=== PATIENT | female | born 1940 | race Caucasian/White ===

== ENCOUNTER → 2016-07-21 | Outpatient (CLI) | payer MEDICARE, OTHER | END | disposition home or self-care (01) | LOC: GMAB 10:05 | PROVIDERS: ATTEND Family Medicine | DX: I50.22 Chronic systolic (congestive) heart failure (principal); I10 Essential (primary) hypertension ==

== ENCOUNTER → 2016-08-03 | Outpatient (CLI) | payer MEDICARE, OTHER ==
--- NOTE | 2016-08-04 11:29 | MAM ---
History: Well woman exam. Personal history of breast cancer status post left malignant lumpectomy. Date of exam: 08/03/2016 Services provided: Bilateral full field digital screening mammography. CAD, the images were reviewed with R2 computer aided detection. FINDINGS: Glandular tissue is scattered glandular contour. No prior study is currently available for comparison. Surgical changes upper outer left breast. Right retroareolar 9:00 nodule. MLO view demonstrates two moles with only a single marker on the craniocaudal projection films and nodule demonstrated medially. Questioned skin lesion medial right breast from the second skin lesion. Postsurgical changes left breast. Small nodule intimately associated with the surgical site may represent a small intramammary lymph node. IMPRESSION: Incomplete exam Recommendation: Repeat CC view right breast with moles marked medially. Directed bilateral sonography, retroareolar right breast 9:00 and left breast peripherally 1:00 at the surgical site. BIRAD CATEGORY: 0 INCOMPLETE Electronically signed by: Bee Farrell MD 08/04/2016 11:27 AM CDT
== END | disposition home or self-care (01) ==
LOC: MAMMO 13:47
PROVIDERS: ATTEND Family Medicine
DX: Z12.31 Encounter for screening mammogram for malignant neoplasm of breast (principal)

== ENCOUNTER → 2016-11-03 | Outpatient (CLI) | payer MEDICARE, OTHER ==
--- NOTE | 2016-11-03 16:03 | MAM ---
EXAM DESCRIPTION: 3D Diagnostic, Bilateral CLINICAL HISTORY: 76 yearsFemaleABNORMAL MAMMOGRAM. Multiple bilateral skin moles on the breast. Prior malignancy upper outer quadrant left breast with lumpectomy. Focal asymmetry retroareolar right breast.. COMPARISON: Bilateral digital screening examination 08/03/2016. Report from prior examination also reviewed. TECHNIQUE: Left CC and MLO projection full-field images, 3-D tomosynthesis digital mammographic technique. Right breast digital 3-D tomosynthesis CC projection with synthesized image. Also left synthesized CC/ MLO full-field images. CAD not utilized. FINDINGS: The breast parenchymal density pattern is: Scattered areas of fibroglandular density. No skin thickening or nipple retraction . Multiple skin moles in both breasts. Five Mm well-circumscribed mass density upper outer quadrant left breast in the axillary tail less than 2 cm from the skin surface. Minimal radiolucency. Incidentally surrounding fatty tissues. No skin thickening. No calcifications. Posterior to the lumpectomy scar. Consistent with a lymph node on ultrasound. Focal asymmetry in the retroareolar right breast shows a small oval-shaped nodule superiorly with radiolucency. Has the appearance of a lymph node on ultrasound. IMPRESSION: BI-RADS CATEGORY: 2 - BENIGN FINDINGS. FOLLOW UP: Return to routine digital bilateral screening, one year interval from date Written communication explaining the findings and follow-up, will be mailed to the patient and referring health care provider. According to the [employer], yearly mammograms are recommended starting at age 40 and continuing as long as a woman is in good health. Any breast change noted on a breast self-exam should be reported promptly to the patient's healthcare provider. Breast MRI is recommended for women with an approximately 20-25% or greater lifetime risk of breast cancer, including women with a strong family history of breast or ovarian cancer and women who have been treated for Hodgkin's disease. A negative mammographic report should not delay tissue diagnosis in patients with significant clinical history or physical findings. Extremely dense breast tissue limits the sensitivity of digital mammography. Electronically signed by: Lm Lentz MD 11/03/2016 4:01 PM CDT Workstation: [id number]
--- NOTE | 2016-11-04 14:04 | US ---
EXAM DESCRIPTION: Breast, bilateral CLINICAL HISTORY: 76 yearsFemaleABNORMAL MAMMOGRAM COMPARISON: Diagnostic digital mammogram of the bilateral breasts on same visit . Screening digital bilateral mammography 08/01/2016. TECHNIQUE: Transcutaneous scanning of the 100 clock position of the posterior left breast at prior biopsy site and the 100 clock position of the retroareolar right breast utilizing two-dimensional and Doppler modes. Scanning performed by the sql etl developer and Dr. Lentz. FINDINGS: Multiple skin moles and moles around the nipple bilaterally. At the 900 clock position of the right breast, a hypoechoic mass is visible with central echogenicity. 7.6 x 5.3 x 3.6 mm, parallel orientation. Well-circumscribed rodriges. Central echogenicity. No significant vascularity. Mixed posterior acoustic features. Consistent with a lymph node. In the left breast, in the lumpectomy site, there is a hypoechoic nodule measuring 2.2 x 4.2 mm, well-defined rodriges, not vascular. Echogenicity around the rodriges with posterior acoustic shadowing. No cyst or calcifications. Another hypoechoic nodule with parallel orientation and posterior acoustic shadowing and thickened rodriges measures 4.4 x 3.7 mm. No cyst or calcifications. A third hypoechoic nodule measures 6.4 x 7.0 mm, hypoechoic with minimal central echogenicity but not vascular. No focal cyst or calcification. Oval hypoechoic nodule approximately 5 mm with central echogenicity, in axillary region, most likely a lymph node. IMPRESSION: BI-RADS CATEGORY: 3 - PROBABLY BENIGN FINDING - Short Interval Follow-Up Suggested FOLLOW-UP: Short-interval (6-month) follow-up ultrasound and continued six-month surveillance mammography left breast. Written communication explaining the results and follow-up will be mailed to the patient and referring care provider. The findings and the follow-up plan were reviewed in person with the patient after the examination. Electronically signed by: Lm Lentz MD 11/04/2016 2:03 PM CDT Workstation: [id number]
== END ==
LOC: MAMMO 12:43
PROVIDERS: ATTEND Family Medicine
DX: R92.2 Inconclusive mammogram (principal)
CPT/HCPCS: 76641; G0279

== ENCOUNTER → 2017-02-24 | Outpatient (CLI) | payer MEDICARE, OTHER ==
--- NOTE | 2017-02-25 07:05 | RAD ---
Procedure: XR KNEE 4 OR MORE VIEWS Exam Date: 02/24/2017 12:00 AM STATE ATTORNEY Ordering Provider: JOSS FITZPATRICK Clinical Indication: KNEE PAIN Comparison: None Findings: No fractures or subluxations. No joint effusion seen. No subcutaneous gas or radiopaque foreign body. No lytic or sclerotic lesions identified. No significant degenerative change. Impression: Unremarkable right knee series. Electronically signed by: Neno Moore MD 02/25/2017 7:04 AM STATE ATTORNEY
--- NOTE | 2017-02-25 13:14 | RAD ---
EXAM DESCRIPTION: Pelvis CLINICAL HISTORY: 77 yearsFemale, HIP PAIN COMPARISON: None. IMPRESSION: An AP view of the pelvis demonstrates no evidence of acute fracture, dislocation, or destructive osseous lesion. The bones are demineralized. Recommend correlation with DEXA scan. 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 Mild to moderate degenerative changes in both sacroiliac joints. A vascular stent is demonstrated in the left iliac region. Electronically signed by: Hossein Casey MD 02/25/2017 1:12 PM [facility]
== END | disposition home or self-care (01) ==
LOC: RAD 07:56
PROVIDERS: ATTEND Orthopaedic Surgery
DX: M25.561 Pain in right knee (principal); M25.551 Pain in right hip

== ENCOUNTER → 2017-08-09 | Outpatient (CLI) | payer MEDICARE, OTHER | LOC: GMAB 11:28 | PROVIDERS: ATTEND Family Medicine | DX: I10 Essential (primary) hypertension (principal) ==

== ENCOUNTER → 2017-08-19 | Outpatient (CLI) | payer MEDICARE, OTHER ==
--- NOTE | 2017-08-19 18:13 | MRI ---
EXAM DESCRIPTION: Brain w/oContrast CLINICAL HISTORY: DEMENTIA COMPARISON: 07/02/15 TECHNIQUE: Multiplanar multisequence imaging of the brain including the intravenous administration of contrast. FINDINGS: Patient motion limits detail. Encephalomalacia superior to the right basal ganglia is likely sequela of prior insult, likely on the basis of small vessel disease. Scattered foci of increased T2 signal intensity do not exert significant mass effect on surrounding structures and may be sequela of prior insult, most likely on the basis of small vessel disease. There is no evidence of acute ischemia. There is no definite evidence of acute mass, mass effect, midline shift or hemorrhage. No focal abnormal extra-axial fluid collection is seen. The ventricles, basal cisterns and extra-axial fluid spaces are normal in size and configuration. IMPRESSION: No acute abnormalities. Electronically signed by: Lm Hale 08/19/2017 6:12 PM CDT
== END ==
LOC: MRI 14:00
PROVIDERS: ATTEND Family Medicine
DX: F03.90 Unspecified dementia, unspecified severity, without behavioral disturbance, psychotic disturbance, mood disturbance, and anxiety (principal)

== ENCOUNTER → 2017-08-24 | Outpatient (CLI) | payer MEDICARE, OTHER ==
--- NOTE | 2017-08-26 15:31 | MAM ---
EXAM DESCRIPTION: 3D Screening BILATERAL : Digital Mammography. CLINICAL HISTORY: 77 years Female SCREENING . Breast cancer in 2000 left breast with lumpectomy and radiation. No current complaints. Mother with ovarian cancer. Postmenopausal. No HRT COMPARISON: 2-D digital screening bilateral study 08/03/2016. Report from prior examination also reviewed. TECHNIQUE: Bilateral CC and MLO projection full-field images, 3-D tomosynthesis digital mammographic technique. Also bilateral synthesized CC/ MLO full-field images. CAD not utilized. FINDINGS: The breast parenchymal density pattern is: Scattered areas of fibroglandular density. No skin thickening or nipple retraction right axillary lymph nodes. Bilateral solitary microcalcifications. Multiple bilateral skin moles moles on the bilateral nipples. Architectural distortion at the site of prior biopsy and radiation anterior upper breast at the 1200 clock position. No focal, stellate mass or density, focal asymmetry , and no suspicious microcalcifications bilaterally. Stable mammograms compared to prior study, taking into account differences in mammographic technique IMPRESSION: BI-RADS CATEGORY: 2 - BENIGN FINDINGS. FOLLOW UP: Routine digital bilateral screening, one year interval from August 2017. Written communication explaining the IMPRESSION and follow-up, will be mailed to the patient and referring health care provider. According to the [employer], yearly mammograms are recommended starting at age 40 and continuing as long as a woman is in good health. Any breast change noted on a breast self-exam should be reported promptly to the patient's healthcare provider. Breast MRI is recommended for women with an approximately 20-25% or greater lifetime risk of breast cancer, including women with a strong family history of breast or ovarian cancer and women who have been treated for Hodgkin's disease. A negative mammographic report should not delay tissue diagnosis in patients with significant clinical history or physical findings. Extremely dense breast tissue limits the sensitivity of digital mammography. Electronically signed by: Lm Lentz MD 08/26/2017 3:30 PM CDT
== END ==
LOC: MAMMO 10:00
PROVIDERS: ATTEND Family Medicine
DX: Z12.31 Encounter for screening mammogram for malignant neoplasm of breast (principal)

== ENCOUNTER → 2017-09-07 | Outpatient (CLI) | payer MEDICARE, OTHER | LOC: GMAB 11:18 | PROVIDERS: ATTEND Family Medicine | DX: D51.3 Other dietary vitamin B12 deficiency anemia (principal); E53.8 Deficiency of other specified B group vitamins; D53.9 Nutritional anemia, unspecified; M79.1 Myalgia; R94.4 Abnormal results of kidney function studies ==

== ENCOUNTER → 2017-09-29 | Outpatient (CLI) | payer MEDICARE, OTHER ==
--- NOTE | 2017-09-29 13:52 | RAD ---
EXAM DESCRIPTION: Foot,Right 3 Views CLINICAL HISTORY: PAIN IN RIGHT FOOT COMPARISON: None Available. TECHNIQUE: AP, LATERAL, AND OBLIQUE FINDINGS: The visualized bones appear osteopenic. No acute fracture or dislocation. The soft tissues appear grossly unremarkable. Degenerative changes are identified in the first metatarsophalangeal joint and interphalangeal joints. Plantar calcaneal spur. IMPRESSION: Osteopenia. Degenerative changes are identified in the first metatarsophalangeal and interphalangeal joints. Electronically signed by: Katherine Barber MD 09/29/2017 1:51 PM CDT
--- NOTE | 2017-09-29 13:52 | RAD ---
EXAM DESCRIPTION: Ankle,Right 3 Views CLINICAL HISTORY: 77 years Female, PAIN IN RIGHT ANKLE AND JOINTS OF RIGHT FOOT COMPARISON: None available. TECHNIQUE: AP, oblique and lateral radiographs. FINDINGS: The visualized bones appear osteopenic. No acute fracture or dislocation. The ankle mortise is intact. Plantar calcaneal spur. The soft tissues appear grossly unremarkable. IMPRESSION: Osteopenia. No acute abnormality. Electronically signed by: Katherine Barber MD 09/29/2017 1:51 PM CDT
== END ==
LOC: RAD 09:54
PROVIDERS: ATTEND Orthopaedic Surgery
DX: M79.671 Pain in right foot (principal); M25.571 Pain in right ankle and joints of right foot; M85.871 Other specified disorders of bone density and structure, right ankle and foot

== ENCOUNTER → 2017-10-17 | Outpatient (CLI) | payer MEDICARE, OTHER | LOC: LAB.O 11:18 | PROVIDERS: ATTEND Orthopaedic Surgery | DX: Z01.818 Encounter for other preprocedural examination (principal) ==

== ENCOUNTER → 2017-10-18 | Outpatient (CLI) | payer MEDICARE, OTHER | LOC: GMAE 16:28 | PROVIDERS: ATTEND Family Medicine | DX: E83.52 Hypercalcemia (principal) ==

== ENCOUNTER → 2017-11-01 | Outpatient (CLI) | payer MEDICARE, OTHER | LOC: GMAE 09:19 | PROVIDERS: ATTEND Family Medicine | DX: E83.52 Hypercalcemia (principal) ==

== ENCOUNTER 2017-11-09 05:37 | Day surgery (SDC) | payer MEDICARE, OTHER ==
--- NOTE | 2017-11-07 11:04 | HP ---
CHIEF COMPLAINT: Right foot pain. HISTORY OF PRESENT ILLNESS: Mikayla is a 77-year-old female with a history of pain in the second toe. She has been having worsening pain and irritation over the dorsum of the second toe PIP joint. It has also become progressively more stiff. She denies any trauma related to this, any radiation of pain or neurologic symptoms. X-rays show severe arthritis. Because of her failure of conservative measures, she has requested operative intervention, which for her would include fusion of the PIP joint of the second toe. After discussing the risks, benefits and alternatives to that, the patient has given informed consent. PAST SURGICAL HISTORY: 1. Cardiac stent placement. 2. Lumpectomy. MEDICATIONS: 1. Metoprolol. 2. Spironolactone. 3. Ibuprofen. 4. Atorvastatin. 5. Caltrate. 6. Multiple vitamins. ALLERGIES: NO KNOWN DRUG ALLERGIES. CODE STATUS: Full code. IMMUNIZATIONS: Up to date. FAMILY HISTORY: None pertinent to today's complaint. SOCIAL HISTORY: The patient does not drink, smoke or use any illicit drugs. REVIEW OF SYSTEMS: Negative except as indicated in the History of Present Illness. PHYSICAL EXAMINATION: VITAL SIGNS: Blood pressure 142/60. Pulse 78. Height 5'1". Weight 176 pounds. MENTAL STATUS: The patient is awake, alert, and is able to give a good history and participate in the physical. The patient is oriented to person, place and time. SKIN: Normal tone and turgor. MUSCULOSKELETAL: She has a stiff, fixed deformity at the PIP joint with hammertoe. She has slightly decreased sensation as there is a scar medially and on the plantar aspect. She denies any radiation of pain associated with this. Today, fortunately, she does not have any callus or other issues over the dorsum. IMAGING: X-rays show severe arthritis with fixed hammertoe deformity. ASSESSMENT: 1. Arthritis. PLAN: The plan at this point is for fusion of the PIP joint. We have discussed the risks, benefits, and alternatives to that and the patient has given informed consent. #[id number] [facility]
[2017-11-09] MEDS ORDERED: SODIUM CHL 0.9% 100ML MINI-BAG 100 ML IVPB ONE (05:45)
[2017-11-09] MEDS ORDERED: ceFAZolin SODIUM 1 GM VIAL ONE (05:46)
[2017-11-09] MEDS ORDERED: LACTATED RINGERS 1,000 ML ONE (05:46)
[2017-11-09] MEDS ORDERED: MIDAZOLAM INJ 2 MG/2 ML VIAL ONE (06:47)
[2017-11-09] MEDS ORDERED: fentaNYL CITRATE INJ 50 MCG/ML AMP ONE (06:48)
[2017-11-09] MEDS: ceFAZolin SODIUM 1 GM VIAL ONE ×2 (07:44→08:08)
[2017-11-09] MEDS: VANCOMYCIN HCL INJ 1,000 MG VIAL IVPB ONE ×2 (07:47→08:08)
[2017-11-09] MEDS: BUPIVACAINE 0.5% 30 ML VIAL INJ ONE ×2 (08:10→08:21)
--- NOTE | 2017-11-09 09:22 | RAD ---
EXAM DESCRIPTION: Foot,Right 2 Views CLINICAL HISTORY: 77 years, Female, POSTOP COMPARISON: None TECHNIQUE: AP and lateral views of the right foot FINDINGS: Bones appear osteoporotic. Screw is seen in the second toe involving proximal and middle phalanges. Lateral view shows no midfoot malalignment. Intact talus and calcaneus with prominent plantar calcaneal enthesophyte. IMPRESSION: Postop changes right second toe. Electronically signed by: Parmjit Khan MD 11/09/2017 9:21 AM CDT
[2017-11-09] MEDS ORDERED: ACETAMINOPHEN 500 MG TAB ONE (09:32)
[2017-11-09] MEDS ORDERED: PROPOFOL 200 MG/20 ML VIAL IV ONE (10:00)
[2017-11-09] MEDS ORDERED: METOCLOPRAMIDE HCL INJ 10 MG/2 ML VIAL IV ONE (10:00)
[2017-11-09] MEDS ORDERED: raNITIdine HCL INJ 25 MG/ML VIAL IV ONE (10:00)
[2017-11-09] MEDS ORDERED: DEXAMETHASONE INJ 10 MG/ML VIAL IV ONE (10:00)
[2017-11-09] MEDS ORDERED: ePHEDrine SULF 50 MG/ML IV ONE (10:00)
[2017-11-09] MEDS ORDERED: LIDOCAINE 1% 10 ML VIAL INJ ONE (10:00)
[2017-11-09 14:37] VITALS: BP 145/66; TEMP 96.8; O2SAT 95
--- NOTE | 2017-11-10 09:09 | OP ---
DATE OF PROCEDURE: 11/09/17 PREOPERATIVE DIAGNOSIS: 1. Hammertoe. 2. 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 POSTOPERATIVE DIAGNOSIS: 1. Hammertoe. 2. 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 PROCEDURE: 1. Fusion of the proximal interphalangeal joint. SURGEON: Byron Padron MD. ROLLER SHOP SUPERVISOR: Lm Pena CST, -C. ANESTHESIA: General anesthesia. COMPLICATIONS: None. FINDINGS: Fixed flexion deformity at the proximal interphalangeal joint with severe arthritis. INDICATION: Ms. Ontiveros has a history of severe discomfort secondary to her arthritis. She has difficulty with shoe-wear because of the flexed nature of the digit. Because of that, she has requested operative intervention. After discussing the risks, benefits and alternatives to that, she has given informed consent for that. PROCEDURE: The patient was brought to the Operating Room and placed in supine position. General anesthesia was induced and the patient's leg was sterilely prepped and draped. Transverse incision was made directly over the proximal interphalangeal joint which was exposed. The cartilaginous surfaces were debrided. Following that, the toe was reduced and a single headless screw was placed from distal to proximal over a wire. The reduction and screw placement were confirmed under fluoroscopic imaging. The wound was thoroughly irrigated and closed. Sterile dressings were placed. The patient was awoken from anesthesia and taken to Recovery. POSTOPERATIVE PLAN: She will be weight-bearing as tolerated and followup with us in two days. #[id number] [facility]
== END 2017-11-09 10:40 | disposition home or self-care (01) ==
LOC: AMB 05:37
PROVIDERS: ATTEND Orthopaedic Surgery
DX: M20.41 Other hammer toe(s) (acquired), right foot (principal); M13.871 Other specified arthritis, right ankle and foot; I10 Essential (primary) hypertension; I25.10 Atherosclerotic heart disease of native coronary artery without angina pectoris; I25.2 Old myocardial infarction; E66.9 Obesity, unspecified; Z68.33 Body mass index [BMI] 33.0-33.9, adult; Z95.5 Presence of coronary angioplasty implant and graft; Z87.891 Personal history of nicotine dependence; Z79.82 Long term (current) use of aspirin; Z79.899 Other long term (current) drug therapy
CPT/HCPCS: 01480; 28285; 73620; 76000; J0690; J1100; J2250; J2765; J2780; J3010; J3370; J3490; J7050; J7120

== ENCOUNTER → 2017-12-16 | Outpatient (CLI) | payer MEDICARE, OTHER ==
--- NOTE | 2017-12-16 11:00 | RAD ---
EXAM DESCRIPTION: Foot,Right 3 Views CLINICAL HISTORY: HAMMER TOE COMPARISON: Radiographs of the right foot dated 11/09/2017. TECHNIQUE: AP, LATERAL, AND OBLIQUE FINDINGS: The visualized bones appear severely osteopenic. Changes of arthrodesis of the proximal interphalangeal joint of the second toe are noted. Mild degenerative changes are noted in the first metatarsophalangeal joint. Small plantar calcaneal spur. IMPRESSION: Osteopenia. Mild osteoarthritis of the first metatarsophalangeal joint. Stable arthrodesis of the proximal interphalangeal joint of the second toe. Electronically signed by: Katherine Barber MD 12/16/2017 10:59 AM CDT
== END ==
LOC: RAD 09:04
PROVIDERS: ATTEND Orthopaedic Surgery
DX: M20.41 Other hammer toe(s) (acquired), right foot (principal); M19.071 Primary osteoarthritis, right ankle and foot

== ENCOUNTER → 2018-01-09 | Outpatient (CLI) | payer MEDICARE, OTHER ==
--- NOTE | 2018-01-10 10:03 | US ---
EXAM DESCRIPTION: Soft Tissue,Abdomen limited CLINICAL HISTORY: SUB Q MASS ON LUMBAR SPINE COMPARISON: MRI lumbar spine September 19, 2008 TECHNIQUE: Sonogram of the lower back and sacral area FINDINGS: Sonogram of the soft tissues of the lower back in the lumbar spinal and upper sacral region was performed in the palpable area of concern. Mildly hypoechoic ovoid mass is seen within and deep to the subcutaneous fat which measures 3.4 x 3.3 x 1.6 cm. Doppler imaging shows positive color flow within the mass. Another smaller lesion, slightly more hypoechoic with low-level internal echoes measures 1.2 x 0.3 x 0.9 cm. This could be a mass or debris-filled cyst. Another deeper mass is measured, deep to the larger of the two masses noted above, which measures 4.2 x 3.2 x 1.6 cm. Minimal color flow within the larger lesions. No color flow in the smaller lesion. The first lesion measured has an appearance most consistent with a lipoma. The other two lesions are indeterminate. CT or repeat MRI through the area might be considered. Comparing to the previous MRI September 19, 2008, no soft tissue mass was seen in the region of the midline lower lumbar spine or sacrum. IMPRESSION: Three soft tissue masses of the mid lower back/upper sacral region. See above. Electronically signed by: Parmjit Khan MD 01/10/2018 10:02 AM CDT
== END ==
LOC: US 16:11
PROVIDERS: ATTEND Surgery
DX: R22.2 Localized swelling, mass and lump, trunk (principal)

== ENCOUNTER → 2018-01-27 | Outpatient (CLI) | payer MEDICARE, OTHER ==
--- NOTE | 2018-01-27 11:10 | RAD ---
Study: 3 Views of the Right Foot. Indication: HAMMER TOE Comparison: December 16, 2017 Impression: Stable appearance of the arthrodesis of the second PIP joint with slight lateral displacement of the middle phalanx. Mild osteoarthritis MTP joint redemonstrated. Osteopenia. Hammertoe configuration of the second digit noted. Second digit soft tissue swelling noted. Mild pes planus. No acute fracture. Persistent calcaneal spurring at the Achilles insertion and plantar fascia origin. Electronically signed by: Isacc Dee MD 01/27/2018 11:08 AM CDT
== END ==
LOC: RAD 09:15
PROVIDERS: ATTEND Orthopaedic Surgery
DX: M20.41 Other hammer toe(s) (acquired), right foot (principal); M19.071 Primary osteoarthritis, right ankle and foot; M77.31 Calcaneal spur, right foot; M21.41 Flat foot [pes planus] (acquired), right foot

== ENCOUNTER 2018-04-24 03:13 | Emergency (ER) | payer MEDICARE, OTHER ==
[2018-04-24 03:28] VITALS: TEMP 98.8
--- NOTE | 2018-04-24 04:44 | RAD ---
CLINICAL HISTORY: fell from standing position onto knee COMPARISON: None. TECHNIQUE: XR KNEE 1-2 VIEWS 04/24/2018 3:59 AM UNDERGROUND HEAVY EQUIPMENT OPERATOR FINDINGS: There is no fracture. Joint spaces are preserved. There are surgical clips along the medial lower extremity. IMPRESSION: No acute osseous findings. Electronically signed by: Juni Beckford MD 04/24/2018 4:43 AM UNDERGROUND HEAVY EQUIPMENT OPERATOR
--- NOTE | 2018-04-24 04:44 | RAD ---
CLINICAL HISTORY: coughing for several days COMPARISON: None. TECHNIQUE: XR CHEST 1 VIEW 04/24/2018 3:58 AM MATTRESS INSPECTOR FINDINGS: The heart is normal in size. Sternotomy CABG. Lungs are clear without consolidation, atelectasis, mass or edema. There is no pleural effusion. There is no pneumothorax. There are no acute osseous findings. Left diaphragm is elevated. IMPRESSION: Clear lungs. Electronically signed by: Juni Beckford MD 04/24/2018 4:43 AM MATTRESS INSPECTOR
--- NOTE | 2018-04-24 04:45 | RAD ---
CLINICAL HISTORY: fell from standing position onto knee COMPARISON: None. TECHNIQUE: XR KNEE 1-2 VIEWS 04/24/2018 3:59 AM SHOP AND ALTERATION TAILOR FINDINGS: There is no fracture. Joint spaces are preserved. Soft tissues are unremarkable. IMPRESSION: No acute osseous findings. Electronically signed by: Juni Beckford MD 04/24/2018 4:44 AM SHOP AND ALTERATION TAILOR
--- NOTE | 2018-04-24 05:41 | ED.PDOC ---
History of Present Illness - General Chief Complaint: Trauma Stated Complaint: bilateral knee pain from falling Time Seen by Provider: 04/24/18 05:04 Source: patient Exam Limitations: no limitations - History of Present Illness Initial Comments: Patient presents by EMS after falling onto her knees. She did not lose consciousness. When EMS arrived, she told them that she had been ill recently and weaker than normal. Her oxygen sats by EMS were 90%. She says that she has had a dry cough for about two weeks. She went to urgent care about 4 days ago and was prescribed amoxicillin and Tessalon Perles. She has not been taking the Tessalon Perrles because she did not know they were for cough. She says that she has been eating and drinking normally. She had one episode of vomiting yesterday. Last meal was last night. Last BM was yesterday and was "normal". She does not think that she has had a fever. No chest pain. No dyspnea. No other complaints. Timing/Duration: other - 2 weeks Severity: mild Improving Factors: nothing Worsening Factors: nothing Associated Symptoms: other - as in HPI Allergies/Adverse Reactions: Allergies NO KNOWN ALLERGY Allergy (Verified 04/24/18 03:29) Home Medications: Ambulatory Orders Atorvastatin Calcium [Lipitor] 40 mg PO DAILY 06/23/15 Amlodipine Besylate 5 mg PO DAILY 04/24/18 Amoxicillin & Pot Clavulanate [Augmentin Tab] 875 mg PO BID 04/24/18 Benzonatate Perles [Tessalon Perles] 100 mg PO TID PRN 04/24/18 Guaifenesin [Guaifenesin ER] 1,200 mg PO Q12HR 04/24/18 Metoprolol Succinate [Metoprolol Succinate ER] 100 mg PO DAILY 04/24/18 Spironolactone 25 mg PO DAILY 04/24/18 Review of Systems - Review of Systems Constitutional: States: weakness EENTM: States: see HPI Respiratory: States: see HPI Cardiology: States: no symptoms reported Gastrointestinal/Abdominal: States: no symptoms reported Genitourinary: States: no symptoms reported Musculoskeletal: States: no symptoms reported Skin: States: no symptoms reported Neurological: States: no symptoms reported Endocrine: States: no symptoms reported Hematologic/Lymphatic: States: no symptoms reported Past Medical History (General) - Patient Medical History Hx Seizures: No Hx Stroke: No Hx Dementia: No Hx Asthma: No Hx of COPD: No Hx Cardiac Disorders: Yes - open heart surgery Hx Congestive Heart Failure: No Hx Pacemaker: No Hx Hypertension: Yes Hx Thyroid Disease: No Hx Diabetes: No Hx Gastroesophageal Reflux: No Hx Renal Disease: No Hx Cancer: Yes - breast Hx of HIV: No Hx Hepatitis C: No Hx MRSA: No - Vaccination History Hx Tetanus, Diphtheria Vaccination: No Hx Influenza Vaccination: No Hx Pneumococcal Vaccination: Yes - Social History Hx Tobacco Use: Yes - quit 1985 Hx Chewing Tobacco Use: No Hx Alcohol Use: No Hx Substance Use: No Hx Substance Use Treatment: No Hx Depression: No Hx Physical Abuse: No Hx Emotional Abuse: No Hx Suspected Abuse: No - Female History Patient : No Family Medical History - Family History Father Family History: Unknown Hx Cardiac Disease: Yes Hx Family Cancer: Yes Physical Exam - Physical Exam General Appearance: Alert Eye Exam: bilateral normal Ears, Nose, Throat: hearing grossly normal, normal ENT inspection, normal pharynx Neck: non-tender, full range of motion, supple Respiratory: lungs clear, normal breath sounds, no respiratory distress Cardiovascular/Chest: normal peripheral pulses, regular rate, rhythm, no edema Gastrointestinal/Abdominal: normal bowel sounds, non tender, soft Back Exam: normal inspection, no CVA tenderness Extremity: normal range of motion, non-tender, normal inspection Neurologic: no motor/sensory deficits, alert, normal mood/affect, oriented x 3 Skin Exam: normal color Lymphatic: no adenopathy Progress - Progress Progress: 04/24/18 06:15 Laboratory Tests 04/24/18 04/24/18 04/24/18 03:53 03:53 03:53 WBC 17.6 H RBC 5.42 H Hgb 15.6 Hct 46.9 MCV 86.7 MCH 28.7 MCHC 33.3 RDW 14.4 Plt Count 283 MPV 8.9 Absolute Neuts (auto) 15.40 H Absolute Lymphs (auto) 0.70 L Absolute Monos (auto) 1.30 H Absolute Eos (auto) 0.00 Absolute Basos (auto) 0.20 H Neutrophils % 87.7 H Lymphocytes % 4.2 L Monocytes % 7.1 Eosinophils % 0.1 L Basophils % 0.9 PT 10.0 INR 1.00 PTT (SP) 26.5 Sodium 133 L Potassium 4.4 Chloride 100 L Carbon Dioxide 22 Anion Gap 15.4 BUN 17 Creatinine 1.23 BUN/Creatinine Ratio 13.8 Random Glucose 143 H Serum Osmolality 270.4 L Calcium 9.8 Magnesium 2.2 Total Bilirubin 0.8 Direct Bilirubin 0.1 Indirect Bilirubin 0.7 AST 25 ALT 17 Alkaline Phosphatase 99 Creatine Kinase 215 H* CK-MB (CK-2) 4.1 CK-MB (CK-2) % 1.91 Troponin I 0.03 B-Natriuretic Peptide Serum Total Protein 7.2 Albumin 3.4 TSH 1.61 Free T4 1.32 H Urine Color Urine Appearance Urine pH Ur Specific [place] Urine Protein Urine Glucose (UA) Urine Ketones Urine Blood Urine Nitrite Urine Bilirubin Urine Urobilinogen Ur Leukocyte Esterase Urine RBC Urine WBC Ur Epithelial Cells Urine Bacteria Urine Mucus 04/24/18 04/24/18 04:45 Unknown WBC RBC Hgb Hct MCV MCH MCHC RDW Plt Count MPV Absolute Neuts (auto) Absolute Lymphs (auto) Absolute Monos (auto) Absolute Eos (auto) Absolute Basos (auto) Neutrophils % Lymphocytes % Monocytes % Eosinophils % Basophils % PT INR PTT (SP) Sodium Potassium Chloride Carbon Dioxide Anion Gap BUN Creatinine BUN/Creatinine Ratio Random Glucose Serum Osmolality Calcium Magnesium Total Bilirubin Direct Bilirubin Indirect Bilirubin AST ALT Alkaline Phosphatase Creatine Kinase CK-MB (CK-2) CK-MB (CK-2) % Troponin I B-Natriuretic Peptide 299.0 H* Serum Total Protein Albumin TSH Free T4 Urine Color Yellow Urine Appearance Clear Urine pH 7.0 Ur Specific [place] 1.015 Urine Protein Negative Urine Glucose (UA) Negative Urine Ketones Negative Urine Blood Trace-lysed H Urine Nitrite Negative Urine Bilirubin Negative Urine Urobilinogen 0.2 Ur Leukocyte Esterase Trace H Urine RBC 1-3 Urine WBC 1-3 Ur Epithelial Cells 5-10 Urine Bacteria 1+ Urine Mucus Trace CXR unremarkable. WBC 17.6. BNP 299. Patient was not dyspneic and had oxygen saturations in the mid 90s while here. EKG read by me showed NSR with no ST changes nor T wave inversions. No LBBB. Troponin negative. This likely a viral URI. She told me that falls for her are not uncommon and todays fall was no different than previous. She was encouraged to take her amoxicillin and Tessalon Perles as directed. Care instructions given. E.R. warnings given. Questions were elicited and answered. Patient voiced understanding and agreement with the plan. 04/24/18 06:19 - EKG/XRAY/CT CT Ordered: No Departure - Departure Clinical Impression: Viral upper respiratory illness, Cough, Fall Disposition: Discharge to Home or Self Care Condition: Good Departure Forms: ED Discharge - Pt. Copy, Patient Portal Self Enrollment Instructions: DI for Trauma Diet: resume usual diet Activity: increase activity as tolerated Referrals: JOANNE SPRINGER MD [Primary Care Provider] - 1-2 Weeks Home Medications: Ambulatory Orders Atorvastatin Calcium [Lipitor] 40 mg PO DAILY 06/23/15 Amlodipine Besylate 5 mg PO DAILY 04/24/18 Amoxicillin & Pot Clavulanate [Augmentin Tab] 875 mg PO BID 04/24/18 Benzonatate Perles [Tessalon Perles] 100 mg PO TID PRN 04/24/18 Guaifenesin [Guaifenesin ER] 1,200 mg PO Q12HR 04/24/18 Metoprolol Succinate [Metoprolol Succinate ER] 100 mg PO DAILY 04/24/18 Spironolactone 25 mg PO DAILY 04/24/18 Additional Instructions: Return to the E.R. or your regular doctor for shortness of breath, chest pain, or temperature above 100.4. Take your medications as prescribed. See your regular doctor if symptoms have not resolved within the next week.
[2018-04-24 06:43] VITALS: BP 139/74; O2SAT 95
== END 2018-04-24 06:46 | disposition home or self-care (01) ==
LOC: ER 03:13
DX: J06.9 Acute upper respiratory infection, unspecified (principal); M25.561 Pain in right knee; M25.562 Pain in left knee; R53.1 Weakness; I51.9 Heart disease, unspecified; I10 Essential (primary) hypertension; Z87.891 Personal history of nicotine dependence; Z85.3 Personal history of malignant neoplasm of breast; Z98.890 Other specified postprocedural states; Z79.899 Other long term (current) drug therapy; W19.XXXA Unspecified fall, initial encounter; Y92.9 Unspecified place or not applicable

== ENCOUNTER → 2018-06-12 | Outpatient (CLI) | payer MEDICARE, OTHER ==
--- NOTE | 2018-06-12 16:00 | RAD ---
EXAM DESCRIPTION: Pelvis CLINICAL HISTORY: 78 years Female, HIP PAIN COMPARISON: Radiographs of the pelvis dated 02/24/2017. TECHNIQUE: AP radiograph of the pelvis was performed. FINDINGS: The pelvic ring appears grossly intact on this single AP radiograph. No acute fracture or dislocation. Bilateral sacroiliac joints appear normal. Mild degenerative changes are identified in the bilateral hip joints. The visualized lumbo-sacral spine demonstrates mild degenerative changes. IMPRESSION: Single AP radiograph of the pelvis demonstrates grossly intact pelvic ring. Mild bilateral hip osteoarthritic is. Electronically signed by: Katherine Barber MD 06/12/2018 3:57 PM [facility]
--- NOTE | 2018-06-12 16:00 | RAD ---
EXAM DESCRIPTION: Knee,Left Complete CLINICAL HISTORY: 78 years Female, KNEE PAIN TECHNIQUE: 3 views of the left knee were performed. COMPARISON: Radiographs of the left knee dated 04/24/2018. FINDINGS: The visualized bones appear well mineralized. Heterotopic ossification is noted along the medial aspect of the medial femoral condyle which could be secondary to prior medial collateral ligament avulsion injury. Suprapatellar joint effusion is noted. The soft tissues appear grossly unremarkable. IMPRESSION: Suprapatellar joint effusion. Heterotopic ossification along the medial aspect of the medial femoral condyle could be secondary to prior medial collateral ligament avulsion injury. Electronically signed by: Katherine Barber MD 06/12/2018 3:57 PM [facility]
== END ==
LOC: RAD 09:41
PROVIDERS: ATTEND Orthopaedic Surgery
DX: M25.462 Effusion, left knee (principal); M16.0 Bilateral primary osteoarthritis of hip; M25.562 Pain in left knee; M25.552 Pain in left hip

== ENCOUNTER → 2018-06-13 | Outpatient (CLI) | payer MEDICARE, OTHER ==
--- NOTE | 2018-06-13 12:12 | MRI ---
MRI left knee without contrast INDICATION: Unilateral arthritis knee pain TECHNIQUE: Noncontrast MR imaging left knee standard protocol FINDINGS: There are surgical clips from apparent previous saphenous vein harvest along the medial soft tissues of the knee. Moderate to large joint effusion. Mild extensor tendinosis without rupture. Cruciate ligaments are intact. Subchondral impaction/collapse posterior aspect lateral femoral condyle likely subchondral insufficiency fracture in the spectrum of SONK with diffuse marrow edema. Mild degenerative changes with fraying throughout the posterior horn lateral meniscus. Collateral ligaments are intact. Extensive grade 4 chondrosis across the superior patellar apex with subchondral edema. This extends into both medial and lateral patellar facets. 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
== END ==
LOC: MRI 11:00
PROVIDERS: ATTEND Orthopaedic Surgery
DX: M17.12 Unilateral primary osteoarthritis, left knee (principal); M89.8X6 Other specified disorders of bone, lower leg; M25.462 Effusion, left knee

== ENCOUNTER → 2018-11-07 | Outpatient (CLI) | payer MEDICARE, OTHER | LOC: ECHO 11:44 | PROVIDERS: ATTEND Family Medicine | DX: I25.10 Atherosclerotic heart disease of native coronary artery without angina pectoris (principal) ==

== ENCOUNTER 2018-11-22 10:46 | Emergency (ER) | payer MEDICARE, OTHER ==
--- NOTE | 2018-11-22 10:57 | ED.PDOC ---
History of Present Illness - General Chief Complaint: Trauma Stated Complaint: fall Time Seen by Provider: 11/22/18 10:56 Source: patient, EMS Exam Limitations: no limitations - History of Present Illness Initial Comments: Mikayla Ontiveros 78 y/o female brought by EMS with unwitness fall at home she was found laying down on a carpeted floor by sister patient could not recall how she fell but stated was going back to her bed and stated lightheaded-which is chronic and also noted by sister unclothed.On EMS arrival she was awake talking with family member unable to get up..She was about to go to see her Md today. Has some tolerable pains/discomfort on her buttocks. Timing/Duration: 1-3 hours Severity: moderate Improving Factors: nothing Worsening Factors: nothing Associated Symptoms: other - see hpi Allergies/Adverse Reactions: Allergies NO KNOWN ALLERGY Allergy (Verified 11/22/18 11:10) Home Medications: Ambulatory Orders Atorvastatin Calcium [Lipitor] 40 mg PO DAILY 06/23/15 Amlodipine Besylate 5 mg PO DAILY 04/24/18 Amoxicillin & Pot Clavulanate [Augmentin Tab] 875 mg PO BID 04/24/18 Benzonatate Perles [Tessalon Perles] 100 mg PO TID PRN 04/24/18 Guaifenesin [Guaifenesin ER] 1,200 mg PO Q12HR 04/24/18 Metoprolol Succinate [Metoprolol Succinate ER] 100 mg PO DAILY 04/24/18 Spironolactone 25 mg PO DAILY 04/24/18 Review of Systems - Review of Systems Constitutional: States: no symptoms reported EENTM: States: no symptoms reported Respiratory: States: no symptoms reported Cardiology: States: no symptoms reported Gastrointestinal/Abdominal: States: no symptoms reported Genitourinary: States: no symptoms reported Musculoskeletal: States: no symptoms reported Skin: States: no symptoms reported Neurological: States: other - lightheaded-chronic All other Systems: Reviewed and Negative, No Change from Baseline Past Medical History (General) - Patient Medical History Hx Seizures: No Hx Stroke: No Hx Dementia: No Hx Asthma: No Hx of COPD: No Hx Cardiac Disorders: Yes - open heart surgery Hx Congestive Heart Failure: No Hx Pacemaker: No Hx Hypertension: Yes Hx Thyroid Disease: No Hx Diabetes: No Hx Gastroesophageal Reflux: No Hx Renal Disease: No Hx Cancer: Yes - breast Hx of HIV: No Hx Hepatitis C: No Hx MRSA: No Surgical History: coronary bypass surgery, other - left mastectomy,carotid EA left - Vaccination History Hx Tetanus, Diphtheria Vaccination: No Hx Influenza Vaccination: No Hx Pneumococcal Vaccination: Yes - Social History Hx Tobacco Use: Yes - quit 1985 Hx Chewing Tobacco Use: No Hx Alcohol Use: No Hx Substance Use: No Hx Substance Use Treatment: No Hx Depression: No Hx Physical Abuse: No Hx Emotional Abuse: No Hx Suspected Abuse: No - Female History Patient : No Family Medical History - Family History Father Family History: Unknown Hx Cardiac Disease: Yes Hx Family Cancer: Yes - parents Physical Exam - Physical Exam General Appearance: Alert, Comfortable, No apparent distress Eye Exam: right normal, bilateral other - corneal opcity left eye can see shadows only Ears, Nose, Throat: hearing grossly normal, normal ENT inspection, normal pharynx Neck: non-tender, full range of motion, supple, normal inspection Respiratory: chest non-tender, lungs clear, normal breath sounds, no respiratory distress, other - hard rounded fixed mass 8 cm x 8cm anterior chest wall Cardiovascular/Chest: normal peripheral pulses, regular rate, rhythm, no murmur Peripheral Pulses: radial,right: 2+, radial,left: 2+ Gastrointestinal/Abdominal: non tender, soft, no organomegaly Back Exam: normal inspection, no CVA tenderness, no vertebral tenderness Extremity: non-tender, no pedal edema, no calf tenderness Neurologic: alert, oriented x 3 Skin Exam: normal color, warm/dry Progress - Progress Progress: 11/22/18 11:36 Vital Signs - 8 hr 11/22/18 11:07 Pulse Rate [ 92 H Apical] Respiratory 20 Rate Blood Pressure 172/87 [Left Arm] O2 Sat by Pulse 94 L Oximetry - Results/Orders Results/Orders: 11/22/18 10:57 IV Care:Saline Lock per Protoc QSHIFT 11/22/18 14:22 Sodium Chloride 0.9% 500Ml [NS 500ml] 500 ml IVS .QD 11/22/18 15:39 URINALYSIS Stat Laboratory Results - last 24 hr 11/22/18 11/22/18 11/22/18 12:44 12:44 12:44 WBC 18.8 H RBC 5.63 H Hgb 15.4 Hct 46.8 MCV 83.2 MCH 27.3 MCHC 32.8 L RDW 15.2 H Plt Count 432 H MPV 8.1 Absolute Neuts (auto) 16.60 H Absolute Lymphs (auto) 0.90 L Absolute Monos (auto) 1.20 H Absolute Eos (auto) 0.00 Absolute Basos (auto) 0.10 Neutrophils % 88.4 H Lymphocytes % 5.0 L Monocytes % 6.3 Eosinophils % 0.0 L Basophils % 0.3 PT 10.6 INR 1.06 PTT (SP) 29.2 Sodium 137 Potassium 3.9 Chloride 100 L Carbon Dioxide 21 Anion Gap 19.9 H BUN 20 H Creatinine 1.15 BUN/Creatinine Ratio 17.4 Random Glucose 116 H Serum Osmolality 277.4 Lactic Acid 2.1 Calcium 9.5 Magnesium 2.1 Total Bilirubin 0.4 Direct Bilirubin 0.1 Indirect Bilirubin 0.3 AST 86 H ALT 57 Alkaline Phosphatase 126 H Creatine Kinase 1864 H* CK-MB (CK-2) 25.9 H* CK-MB (CK-2) % 1.39 Troponin I 0.03 B-Natriuretic Peptide 758.0 H* Serum Total Protein 7.5 Albumin 3.1 L TSH 1.38 Discuss all test results with patient and advised hospital obs for rhabdomyolysis but stated has doctor appointment in [place] for further exam on the big mass on her chest since it had been re-scheduled 3 x and wants to be there;DECLINED TO STAY FOR HOSPITAL OBS;Patient mentally stable to make decisions;But advised family to have someone stay at home with her - EKG/XRAY/CT XRAY: chest - no acute findings Departure - Departure Clinical Impression: Lightheadedness Fall at home Qualifiers: Encounter type: initial encounter Qualified Code(s): W19.XXXA - Unspecified fall, initial encounter Traumatic rhabdomyolysis Qualifiers: Encounter type: initial encounter Qualified Code(s): T79.6XXA - Traumatic ischemia of muscle, initial encounter Time of Disposition: 16:29 Disposition: Discharge to Home or Self Care Condition: Fair Departure Forms: ED Discharge - Pt. Copy, Patient Portal Self Enrollment Diet: other - NEED TO DRINK EXTRA FLUIDS Referrals: JOANNE SPRINGER MD [Active Staff] - 1-2 Weeks Home Medications: Ambulatory Orders Atorvastatin Calcium [Lipitor] 40 mg PO DAILY 06/23/15 Amlodipine Besylate 5 mg PO DAILY 04/24/18 Amoxicillin & Pot Clavulanate [Augmentin Tab] 875 mg PO BID 04/24/18 Benzonatate Perles [Tessalon Perles] 100 mg PO TID PRN 04/24/18 Guaifenesin [Guaifenesin ER] 1,200 mg PO Q12HR 04/24/18 Metoprolol Succinate [Metoprolol Succinate ER] 100 mg PO DAILY 04/24/18 Spironolactone 25 mg PO DAILY 04/24/18 Additional Instructions: NEED TO HOLD ATORVASTATIN FOR 5 days;RECHECK WITH PRIMARY MD 24 November 2018;Return to [facility] room if symptoms worsens
[2018-11-22] MEDS ORDERED: SODIUM CHLORIDE 0.9% 500ML 500 ML IVS ONE (10:59)
--- NOTE | 2018-11-22 14:03 | US ---
EXAM DESCRIPTION: Carotid Duplex: ULTRASOUND. CLINICAL HISTORY: 78 years Female fall/lightheaded COMPARISON: CT scan of the head on this visit. TECHNIQUE: Transcutaneous scanning utilizing recinos-scale and Doppler modes to evaluate the bilateral carotid systems and vertebral arteries. Percentage of diameter of stenosis or no stenosis recorded will be based upon NASCET criteria. FINDINGS: Peak systolic/end diastolic (CM-Sec) CCA Right 76/0 Left 146/2. ICA Right proximal 45/8, distal 67/16. Left proximal 48/6, Distal 72/16. Vertebral Right 74/2 Left 66/9. ECA (PS Only) Right 35 left 37. ICA/CCA peak systolic ratio: Right 0.9 Left 0.5 ICA/CCA end diastolic ratio: Right not measured Left 7.2 Vertebral arteries: antegrade flow. Comments Comments: 32% area stenosis in the proximal right ICA. 41% diameter stenosis. 20% diameter and area stenosis in the right common carotid bulb. Spectral broadening distal right ICA and mid and distal left ICA. Bilateral moderately sized atherosclerotic calcifications. 23% area stenosis in the proximal left ICA with 26% diameter stenosis. 24% area stenosis in the left CCA bulb with 26% diameter stenosis. IMPRESSION: 1. Doppler evaluation of the bilateral carotid systems and vertebral arteries shows no hemodynamically significant stenoses. Bilaterally low diastolic velocities in the common carotid, ICA and ECA, and vertebral vessels. 2. Moderate amount of plaque seen in the carotid arteries bilaterally. Bilateral vertebral arteries showed antegrade-cephalad flow. Electronically signed by: Lm Lentz MD 11/22/2018 2:00 PM CDT
[2018-11-22] MEDS ORDERED: SODIUM CHLORIDE 0.9% 500ML 500 ML IVS PRN (14:22)
--- NOTE | 2018-11-22 14:48 | RAD ---
EXAM DESCRIPTION: Hip Bilateral CLINICAL HISTORY: fall COMPARISON: None. TECHNIQUE: 2 views bilateral FINDINGS: Examination of the right hip reveals no evidence of a fracture or dislocation. Minimal degenerative calcification is observed immediately above the greater trochanter. No pelvic fracturing is seen. Examination of the left hip reveals no evidence of a fracture or significant degenerative arthritis. A surgical clip is observed in the medial left thigh. IMPRESSION: No fracturing is detected in either hip. Electronically signed by: Richard Caba MD 11/22/2018 2:46 PM CDT
--- NOTE | 2018-11-22 14:50 | RAD ---
EXAM DESCRIPTION: Chest,1 View CLINICAL HISTORY: fall COMPARISON: 24 April 2018 TECHNIQUE: AP portable chest FINDINGS: The patient is poststernotomy. The heart is within range of normal. Mild elevation of the left hemidiaphragm is observed. Some mild chronic interstitial lung disease is noted. No acute parenchymal infiltrate is seen. No pleural fluid is seen. IMPRESSION: I see no acute cardiopulmonary pathology. Electronically signed by: Richard Caba MD 11/22/2018 2:49 PM CDT
--- NOTE | 2018-11-22 14:51 | RAD ---
EXAM DESCRIPTION: Pelvis CLINICAL HISTORY: fall COMPARISON: None. TECHNIQUE: AP pelvis FINDINGS: The proximal femurs are intact. No fracturing is detected. No pelvic injury is seen. A left iliac artery stent is observed at the surgical clip is observed in the medial aspect of the left thigh. IMPRESSION: No fracturing is detected. Electronically signed by: Richard Caba MD 11/22/2018 2:50 PM CDT
--- NOTE | 2018-11-22 15:50 | CT ---
EXAM DESCRIPTION: Head: Computed Tomography. CLINICAL HISTORY: fall /lightheaded COMPARISON: Bilateral ultrasound duplex evaluation of the carotid and vertebral vessels today. TECHNIQUE: Non-helical axial scans through the skull and brain, at 2.5 x 21 mm intervals, non-contrast. Coronal and sagittal 2.0 mm reconstructions. Total Exam DLP: 859.97 mGy-cm. This exam was performed according to our departmental dose-optimization program which includes automated exposure control, adjustment of the mA and/or kV according to patient size and/or use of iterative reconstruction technique; to reduce radiation dose to as low as reasonably achievable (ALARA). FINDINGS: No hemorrhage, no mass-effect, and no midline shift. Stable encephalomalacia in the superior anterior right basal ganglia extending into the right frontal periventricular ruiz radiata. Mild dilation of the adjacent frontal horn and body of the right lateral ventricle. Stable from the prior study. Bilateral symmetric low-density in the centrum semiovale frontal parietal and occipital lobes. No abnormal radiodense material in the brain parenchyma. Vascular calcifications anterior and posterior circulations; physiologic calcifications in the pineal gland and choroid plexus. No effacement or displacement of the ventricles, CSF spaces, or subdural spaces. Symmetric prominence of the cortical sulci are stable. No extra axial fluid collection or hemorrhage. No gross abnormalities of the bony calvarium. Included paranasal sinuses and mastoid air cells are well - aerated. IMPRESSION: 1. No hemorrhage, no mass effect, no midline shift. . Stable white matter changes related to aging and cerebral microvascular disease. Stable encephalomalacia right basal ganglia and right paraventricular frontal lobe white matter. 2. CT scans are insensitive for detecting small CVAs in the first 24 hours after onset. Evaluation of the brain stem is also limited. If symptoms persist, consider NON-EMERGENT MRI scan of the brain with diffusion imaging. Electronically signed by: Lm Lentz MD 11/22/2018 3:49 PM CDT
[2018-11-22 16:55] VITALS: BP 162/81; TEMP 97.8; O2SAT 92
== END 2018-11-22 16:55 | disposition home or self-care (01) ==
LOC: ER 10:46
DX: R42 Dizziness and giddiness (principal); T79.6XXA Traumatic ischemia of muscle, initial encounter; Y92.009 Unspecified place in unspecified non-institutional (private) residence as the place of occurrence of the external cause; W19.XXXA Unspecified fall, initial encounter; I10 Essential (primary) hypertension; Z95.1 Presence of aortocoronary bypass graft; Z85.3 Personal history of malignant neoplasm of breast; Z87.891 Personal history of nicotine dependence; Z79.899 Other long term (current) drug therapy
CPT/HCPCS: 36415; 70450; 71045; 72170; 73521; 80048; 80076; 81001; 82550; 82553; 83605; 83880; 84443; 84484; 85025; 85610; 85730; 87086; 93880; J7040